=== PATIENT | female | born 1985 | race African-American/Black ===

== ENCOUNTER 2021-08-28 16:24 | Inpatient (IN) ==
[~2021-08-28 16:24] MED LIST: FLUTICASONE 50 MCG NASAL SPRAY 16 GM BOTTLE BOTH NARES PRN
[2021-08-28] MEDS ORDERED: SODIUM CHLORIDE 0.9% 1,000 ML IV STA (17:23)
[2021-08-28 17:41] LABS: Basophils # 0.1 10*3/uL (0.0-0.2); Basophils % 0.5 % (0.0-0.8); Eosinophils % 0.4 % (0.00-10.9); Hematocrit 27.1 VOL% (35.7-47.0); Hemoglobin 8.6 GM/DL (12.0-16.0); Immature Granulocytes % 0.7 %; Immature Granulocytes Absolute 0.07 #; Lymphocytes # 1.4 10*3/uL (1.4-4.0); Mean Corpuscular HGB Conc 31.7 GM/DL (32-36); Mean Corpuscular Volume 76.6 FL (87-102); Mean Platelet Volume 9.3 FL (9.6-12.0); Monocytes # 0.7 10*3/uL (0.11-0.8); Monocytes % 6.9 % (1.7-12.7); Neutrophils % 77.5 % (38.7-73.9); Platelet Count 885 T/CUMM (130-400); Red Blood Count 3.54 MC/CUMM (3.8-5.5); White Blood Count 9.7 T/CUMM (4-12)
[2021-08-28 18:07] LABS: INR 1.1; PT Patient Result 12.2 SECS (10.5-12.0)
[2021-08-28 18:12] LABS: Alanine Aminotransferase < 9 U/L (13-56); Albumin 3.1 G/DL (3.4-5.0); Alkaline Phosphatase 103 U/L (45-117); Aspartate Amino Transferase 13 U/L (0-37); Blood Urea Nitrogen 6 MG/DL (7-18); Calcium 9.3 MG/DL (8.5-10.1); Carbon Dioxide 26 MMOL/L (21-32); Chloride 101 MMOL/L (98-107); Glucose 95 MG/DL (74-106); Potassium 3.2 MMOL/L (3.5-5.1); Sodium 136 MMOL/L (136-145); Total Protein 7.8 G/DL (6.4-8.2)
[2021-08-28] MEDS ORDERED: METOPROLOL TARTRATE 5 MG/5 ML VIAL IV STA (18:28)
[2021-08-28] MEDS ORDERED: POTASSIUM CHLORIDE 20 MEQ TABLET PO STA (18:29)
[2021-08-28 19:56] LABS: Bilirubin,Urine Small mg/dL (Negative); Blood, Urine Negative (Negative); Glucose,Urine (UA) Negative (Negative); Ketones,Urine Trace mg/dL (Negative); Nitrite,Urine Negative (Negative); Protein,Urine 30 mg/dL (Negative); Urine Appearance Clear (Clear); Urine Color Yellow (Yellow); Urine pH 5.5 (4.5-8.0)
[2021-08-28 20:01] LABS: Barbiturates Screen,Urine Negative (Negative); Benzodiazepines Screen,Urine Negative (Negative); Cannabinoid Screen,Urine Negative (Negative); Opiate Screen,Urine Negative (Negative); Phencyclidine Screen,Urine Negative (Negative)
[2021-08-28 20:06] LABS: Hyaline Casts,Urine 3 /LPF (0-3); Mucus,Urine Occasional /LPF (Occasional); RBC,Urine 2 /HPF (0-4); Squamous Epithelial Cell,Urine Occasional /HPF (0-10)
[2021-08-28] MEDS ORDERED: GLUCAGON 1 MG VIAL IM PRN (22:46)
[2021-08-28] MEDS ORDERED: SIMETHICONE CHEW 125 MG TABLET PO PRN (22:51)
[2021-08-28] MEDS ORDERED: ONDANSETRON 4 MG/2 ML VIAL IV PRN (22:51)
[2021-08-28] MEDS ORDERED: BENZONATATE 100 MG CAPSULE PO PRN (23:10)
[2021-08-28] MEDS ORDERED: DEXTROSE 10% 250 ML BAG IV PRN (23:13)
[2021-08-29] MEDS: SODIUM CHLORIDE 0.9% 1,000 ML IV SCH ×2 (02:29→11:02)
[2021-08-29] MEDS: ENOXAPARIN 40 MG/0.4 ML SYRINGE SUBCUT SCH ×2 (04:56→21:27)
[2021-08-29] MEDS ORDERED: POTASSIUM CHLORIDE 20 MEQ TABLET PO PRN (05:27)
[2021-08-29 05:37] LABS: Basophils % 0.5 % (0.0-0.8); Eosinophils % 0.2 % (0.00-10.9); Hematocrit 22.3 VOL% (35.7-47.0); Hemoglobin 7.2 GM/DL (12.0-16.0); Immature Granulocytes % 0.8 %; Immature Granulocytes Absolute 0.07 #; Lymphocytes # 1.2 10*3/uL (1.4-4.0); Lymphocytes % 13.1 % (21.3-54.2); Mean Corpuscular HGB Conc 32.3 GM/DL (32-36); Mean Corpuscular Volume 75.6 FL (87-102); Mean Platelet Volume 9.2 FL (9.6-12.0); Monocytes # 0.8 10*3/uL (0.11-0.8); Monocytes % 9.1 % (1.7-12.7); Neutrophils % 76.3 % (38.7-73.9); Platelet Count 739 T/CUMM (130-400); Red Blood Count 2.95 MC/CUMM (3.8-5.5); Red Cell Distribution Width 15.1 % (9.3-17.3); White Blood Count 8.8 T/CUMM (4-12)
[2021-08-29 06:03] LABS: Calcium 8.6 MG/DL (8.5-10.1); Osmolality,Calculated 268.8 MOS/KG (273-304); Potassium 3.1 MMOL/L (3.5-5.1); Risk Ratio 3.44; VLDL Cholesterol 23.4 MG/DL
[2021-08-29] MEDS ORDERED: POTASSIUM CHLORIDE 20 MEQ TABLET PO ONE ×2 (07:25→11:00)
[2021-08-29] MEDS: PANTOPRAZOLE 40 MG TABLET PO SCH (09:45)
[2021-08-29] MEDS: PRAMIPEXOLE 0.25 MG TABLET PO SCH (09:45)
[2021-08-29] MEDS: DOCUSATE SODIUM 100 MG CAPSULE PO SCH ×2 (09:45→21:28)
[2021-08-29 16:51] LABS: Neutrophils,Peritoneal Fluid 80 %; RBC,Peritoneal Fluid > 100000 T/CUMM
[2021-08-29] MEDS: FENOFIBRATE 160 MG TABLET PO SCH (21:27)
[2021-08-29] MEDS: GABAPENTIN 300 MG CAPSULE PO SCH (21:28)
[2021-08-29] MEDS: TOPIRAMATE 25 MG TABLET PO SCH (21:28)
[2021-08-29] MEDS: traZODone 50 MG TABLET PO SCH (21:28)
[2021-08-30] MEDS: ACETAMINOPHEN 325 MG TABLET PO PRN ×2 (00:07→11:21)
[2021-08-30] MEDS: ENOXAPARIN 40 MG/0.4 ML SYRINGE SUBCUT SCH ×2 (01:01→23:07)
[2021-08-30 04:48] LABS: Basophils % 0.3 % (0.0-0.8); Eosinophils % 0.1 % (0.00-10.9); Hematocrit 20.5 VOL% (35.7-47.0); Immature Granulocytes % 0.8 %; Immature Granulocytes Absolute 0.08 #; Mean Corpuscular HGB Conc 31.2 GM/DL (32-36); Mean Corpuscular Volume 76.5 FL (87-102); Mean Platelet Volume 8.9 FL (9.6-12.0); Monocytes # 0.9 10*3/uL (0.11-0.8); Monocytes % 9.1 % (1.7-12.7); Neutrophils % 79.7 % (38.7-73.9); Platelet Count 708 T/CUMM (130-400); Red Blood Count 2.68 MC/CUMM (3.8-5.5); Red Cell Distribution Width 15.4 % (9.3-17.3); White Blood Count 9.9 T/CUMM (4-12)
[2021-08-30 04:51] LABS: Hemoglobin 6.4 GM/DL (12.0-16.0)
[2021-08-30 05:10] LABS: Alanine Aminotransferase < 9 U/L (13-56); Albumin 2.3 G/DL (3.4-5.0); Alkaline Phosphatase 79 U/L (45-117); Aspartate Amino Transferase 10 U/L (0-37); Blood Urea Nitrogen 3 MG/DL (7-18); Calcium 8.7 MG/DL (8.5-10.1); Carbon Dioxide 25 MMOL/L (21-32); Chloride 106 MMOL/L (98-107); Glucose 101 MG/DL (74-106); Osmolality,Calculated 271.7 MOS/KG (273-304); Potassium 3.5 MMOL/L (3.5-5.1); Sodium 138 MMOL/L (136-145); Total Protein 6.8 G/DL (6.4-8.2)
[2021-08-30] MEDS ORDERED: SODIUM CHLORIDE 0.9% 1,000 ML IV PRN (07:32)
[2021-08-30 07:54] LABS: % Iron Saturation 7.7 % (18-50); Ferritin 60.3 ng/mL (8-252)
[2021-08-30] MEDS: DOCUSATE SODIUM 100 MG CAPSULE PO SCH ×2 (09:04→20:32)
[2021-08-30] MEDS: PANTOPRAZOLE 40 MG TABLET PO SCH (09:04)
[2021-08-30] MEDS: PRAMIPEXOLE 0.25 MG TABLET PO SCH (09:04)
[2021-08-30] MEDS: METOPROLOL TARTRATE 25 MG TABLET PO SCH ×2 (09:11→20:32)
[2021-08-30] MEDS: FENOFIBRATE 160 MG TABLET PO SCH (20:32)
[2021-08-30] MEDS: GABAPENTIN 300 MG CAPSULE PO SCH (20:32)
[2021-08-30] MEDS: traZODone 50 MG TABLET PO SCH (20:32)
[2021-08-30] MEDS: TOPIRAMATE 25 MG TABLET PO SCH (20:32)
[2021-08-31 05:54] LABS: Basophils # 0.1 10*3/uL (0.0-0.2); Basophils % 0.4 % (0.0-0.8); Eosinophils % 0.1 % (0.00-10.9); Hematocrit 28.6 VOL% (35.7-47.0); Hemoglobin 9.5 GM/DL (12.0-16.0); Immature Granulocytes % 1.9 %; Immature Granulocytes Absolute 0.31 #; Lymphocytes # 1.3 10*3/uL (1.4-4.0); Lymphocytes % 7.7 % (21.3-54.2); Mean Corpuscular HGB Conc 33.2 GM/DL (32-36); Mean Corpuscular Volume 79.2 FL (87-102); Mean Platelet Volume 9.4 FL (9.6-12.0); Monocytes # 1.3 10*3/uL (0.11-0.8); Monocytes % 8.2 % (1.7-12.7); NRBC # 0.02 10*3/uL; Neutrophils % 81.7 % (38.7-73.9); Platelet Count 759 T/CUMM (130-400); Red Blood Count 3.61 MC/CUMM (3.8-5.5); Red Cell Distribution Width 15.8 % (9.3-17.3); White Blood Count 16.1 T/CUMM (4-12)
[2021-08-31 06:08] LABS: Alanine Aminotransferase < 9 U/L (13-56); Albumin 2.1 G/DL (3.4-5.0); Alkaline Phosphatase 81 U/L (45-117); Aspartate Amino Transferase 11 U/L (0-37); Blood Urea Nitrogen 5 MG/DL (7-18); Calcium 8.8 MG/DL (8.5-10.1); Carbon Dioxide 23 MMOL/L (21-32); Chloride 105 MMOL/L (98-107); Glucose 110 MG/DL (74-106); Osmolality,Calculated 270.8 MOS/KG (273-304); Potassium 3.5 MMOL/L (3.5-5.1); Sodium 137 MMOL/L (136-145); Total Protein 6.8 G/DL (6.4-8.2)
[2021-08-31] MEDS: METOPROLOL TARTRATE 25 MG TABLET PO SCH (08:23)
[2021-08-31] MEDS: DOCUSATE SODIUM 100 MG CAPSULE PO SCH (08:23)
[2021-08-31] MEDS: PANTOPRAZOLE 40 MG TABLET PO SCH (08:23)
[2021-08-31] MEDS: PRAMIPEXOLE 0.25 MG TABLET PO SCH (08:23)
[2021-08-31 16:28] VITALS: BP 109/68
[2021-09-01] MEDS ORDERED: ERGOCALCIFEROL 50,000 UNIT CAPSULE PO SCH (09:00)
== END 2021-08-31 18:00 | disposition hospice, home (50) | DRG 755 ==
LOC: N.ED 16:24 → N.TELES 22:46
PROVIDERS: ADMIT Family Medicine; ATTEND Family Medicine

== ENCOUNTER 2022-02-08 08:01 | Inpatient (IN) ==
[2022-02-08] MEDS ORDERED: SODIUM CHLORIDE 0.9% 1,000 ML IV STA (08:20)
[2022-02-08 08:37] LABS: Basophils # 0.1 10*3/uL (0.0-0.2); Basophils % 0.2 % (0.0-0.8); Hemoglobin 8.2 GM/DL (12.0-16.0); Immature Granulocytes % 6.9 %; Immature Granulocytes Absolute 2.75 #; Lymphocytes # 1.1 10*3/uL (1.4-4.0); Lymphocytes % 2.9 % (21.3-54.2); Mean Corpuscular HGB Conc 34.2 GM/DL (32-36); Mean Corpuscular Volume 80.8 FL (87-102); Mean Platelet Volume 8.6 FL (9.6-12.0); Monocytes # 1.3 10*3/uL (0.11-0.8); Monocytes % 3.3 % (1.7-12.7); NRBC # 0.02 10*3/uL; Neutrophils % 86.7 % (38.7-73.9); Platelet Count 229 T/CUMM (130-400); Red Blood Count 2.97 MC/CUMM (3.8-5.5); Red Cell Distribution Width 15.8 % (9.3-17.3)
[2022-02-08 08:56] LABS: Band Neutrophils 4 % (0-10); Hypochromia Slight; Lymphocytes 4 % (20-55); Microcytosis Slight; Platelet Estimate Adequate; Total Cells Counted 100
[2022-02-08 08:57] LABS: Albumin 3.3 G/DL (3.4-5.0); Bilirubin,Total 1.3 MG/DL (0.20-1.00); Calcium 10.2 MG/DL (8.5-10.1); Misc Morphology F; Osmolality,Calculated 263.4 MOS/KG (273-304); Potassium 3.3 MMOL/L (3.5-5.1); Total Protein 7.7 G/DL (6.4-8.2)
[2022-02-08] MEDS ORDERED: PIPERACILLIN/TAZOBACTAM 3,375 MG in SODIUM CHLORIDE 0.9% 100 ML IV STA (09:30)
[2022-02-08 09:58] LABS: Bacteria,Urine Occasional /HPF (Few); Glucose,Urine (UA) Negative (Negative); Hyaline Casts,Urine 3 /LPF (0-3); Mucus,Urine Occasional /LPF (Occasional); Protein,Urine Trace mg/dL (Negative); RBC,Urine <1 /HPF (0-4); Squamous Epithelial Cell,Urine Occasional /HPF (0-10); Urine Appearance Clear (Clear); Urine Color Yellow (Yellow); Urine Specific Gravity 1.015 (1.001-1.035)
[2022-02-08 09:59] LABS: Bilirubin,Urine Small mg/dL (Negative); Blood, Urine Negative (Negative); Ketones,Urine 15 mg/dL (Negative); Nitrite,Urine Negative (Negative); Urine Urobilinogen 0.2 eU/dL (<2.0)
[2022-02-08] MEDS ORDERED: FLUTICASONE 50 MCG NASAL SPRAY 16 GM BOTTLE BOTH NARES PRN (10:54)
[2022-02-08] MEDS ORDERED: LIDOCAINE 5% PATCH TRANSDERM PRN (10:54)
[2022-02-08] MEDS ORDERED: METOPROLOL TARTRATE 5 MG/5 ML VIAL IV PRN (10:58)
[2022-02-08] MEDS ORDERED: POTASSIUM CHLORIDE RIDER 20 MEQ/100 ML PREMIX IV PRN (11:01)
[2022-02-08] MEDS: SODIUM CHLORIDE 0.45% 1,000 ML IV SCH ×2 (12:00→22:25)
[2022-02-08] MEDS ORDERED: METOPROLOL TARTRATE 5 MG/5 ML VIAL IV SCH (12:00)
[2022-02-08] MEDS: ONDANSETRON 4 MG/2 ML VIAL IV PRN ×2 (12:04→16:21)
[2022-02-08] MEDS: MORPHINE 2 MG/1 ML SYRINGE IV PRN ×2 (13:02→17:05)
[2022-02-08] MEDS: MEGESTROL 400 MG/10 ML UDCUP PO SCH (22:24)
[2022-02-08] MEDS: PROMETHAZINE 25 MG/1 ML VIAL IM PRN (22:50)
[2022-02-09] MEDS: MORPHINE 2 MG/1 ML SYRINGE IV PRN ×4 (04:09→20:48)
[2022-02-09] MEDS: POTASSIUM CHLORIDE RIDER 10 MEQ/100 ML PREMIX IV PRN ×2 (04:27→05:54)
[2022-02-09 05:42] LABS: Albumin 2.9 G/DL (3.4-5.0); Bilirubin,Total 1.1 MG/DL (0.20-1.00); Osmolality,Calculated 261.4 MOS/KG (273-304); Potassium 3.2 MMOL/L (3.5-5.1); Total Protein 6.4 G/DL (6.4-8.2)
[2022-02-09 05:49] LABS: Basophils # 0.1 10*3/uL (0.0-0.2); Basophils % 0.2 % (0.0-0.8); Eosinophils % 0.1 % (0.00-10.9); Immature Granulocytes % 14.9 %; Immature Granulocytes Absolute 5.64 #; Lymphocytes % 2.7 % (21.3-54.2); Mean Corpuscular HGB Conc 34.2 GM/DL (32-36); Mean Corpuscular Volume 82.3 FL (87-102); Mean Platelet Volume 8.8 FL (9.6-12.0); Monocytes # 1.2 10*3/uL (0.11-0.8); Monocytes % 3.1 % (1.7-12.7); Platelet Count 183 T/CUMM (130-400); Red Blood Count 2.31 MC/CUMM (3.8-5.5); Red Cell Distribution Width 15.9 % (9.3-17.3); White Blood Count 37.9 T/CUMM (4-12)
[2022-02-09 05:50] LABS: Hemoglobin 6.5 GM/DL (12.0-16.0)
[2022-02-09] MEDS: PROMETHAZINE 25 MG/1 ML VIAL IM PRN ×2 (06:23→20:55)
[2022-02-09 06:30] LABS: Hypochromia 1+; Lymphocytes 4 % (20-55); Microcytosis 1+; Platelet Estimate Adequate; Total Cells Counted 100
[2022-02-09 06:50] LABS: Hematocrit 21.5 VOL% (35.7-47.0); Hemoglobin 7.2 GM/DL (12.0-16.0)
[2022-02-09] MEDS ORDERED: SODIUM CHLORIDE 0.9% 1,000 ML IV PRN ×2 (08:26→12:39)
[2022-02-09] MEDS: ONDANSETRON 4 MG/2 ML VIAL IV PRN (10:09)
[2022-02-09] MEDS: PANTOPRAZOLE 40 MG VIAL IV SCH (10:10)
[2022-02-09] MEDS: MEGESTROL 400 MG/10 ML UDCUP PO SCH ×2 (10:11→22:22)
[2022-02-09] MEDS: SODIUM CHLORIDE 0.45% 1,000 ML IV SCH ×2 (10:33→17:15)
[2022-02-09] MEDS: DEXAMETHASONE INJ 10 MG in SODIUM CHLORIDE 0.9% 50 ML IV SCH (14:38)
[2022-02-09] MEDS: hydrALAZINE 20 MG/1 ML VIAL IV PRN (15:31)
[2022-02-09 18:38] LABS: Hematocrit 31.4 VOL% (35.7-47.0)
[2022-02-09 18:40] LABS: Hemoglobin 11.1 GM/DL (12.0-16.0)
[2022-02-10] MEDS: hydrALAZINE 20 MG/1 ML VIAL IV PRN (00:23)
[2022-02-10] MEDS: MORPHINE 2 MG/1 ML SYRINGE IV PRN ×4 (00:25→21:18)
[2022-02-10] MEDS: ONDANSETRON 4 MG/2 ML VIAL IV PRN ×2 (02:50→08:09)
[2022-02-10] MEDS: SODIUM CHLORIDE 0.45% 1,000 ML IV SCH ×2 (03:37→19:23)
[2022-02-10 06:46] LABS: Basophils # 0.1 10*3/uL (0.0-0.2); Basophils % 0.4 % (0.0-0.8); Hematocrit 31.2 VOL% (35.7-47.0); Immature Granulocytes Absolute 3.58 #; Lymphocytes # 0.6 10*3/uL (1.4-4.0); Lymphocytes % 1.6 % (21.3-54.2); Mean Corpuscular HGB Conc 35.3 GM/DL (32-36); Mean Corpuscular Volume 82.3 FL (87-102); Mean Platelet Volume 9.2 FL (9.6-12.0); Monocytes # 1.1 10*3/uL (0.11-0.8); Monocytes % 3.1 % (1.7-12.7); Neutrophils % 84.9 % (38.7-73.9); Platelet Count 212 T/CUMM (130-400); Red Blood Count 3.79 MC/CUMM (3.8-5.5); Red Cell Distribution Width 15.2 % (9.3-17.3); White Blood Count 35.7 T/CUMM (4-12)
[2022-02-10 07:07] LABS: Albumin 3.1 G/DL (3.4-5.0); Bilirubin,Total 1.4 MG/DL (0.20-1.00); Calcium 9.4 MG/DL (8.5-10.1); Osmolality,Calculated 249.4 MOS/KG (273-304); Potassium 3.5 MMOL/L (3.5-5.1); Total Protein 7.2 G/DL (6.4-8.2)
[2022-02-10 07:13] LABS: Band Neutrophils 2 % (0-10); Lymphocytes 3 % (20-55); Total Cells Counted 100
[2022-02-10 07:14] LABS: Hypochromia Slight; Microcytosis 1+; Ovalocytes Slight
[2022-02-10 07:15] LABS: Platelet Estimate Normal
[2022-02-10] MEDS: PANTOPRAZOLE 40 MG VIAL IV SCH (08:09)
[2022-02-10] MEDS: DEXAMETHASONE INJ 10 MG in SODIUM CHLORIDE 0.9% 50 ML IV SCH (08:15)
[2022-02-10] MEDS: MEGESTROL 400 MG/10 ML UDCUP PO SCH (10:19)
[2022-02-10] MEDS: GABAPENTIN 300 MG CAPSULE PO SCH ×4 (13:04→21:24)
[2022-02-10] MEDS: PIPERACILLIN/TAZOBACTAM 3,375 MG in SODIUM CHLORIDE 0.9% 100 ML IV SCH ×2 (15:49→21:30)
[2022-02-11] MEDS: SODIUM CHLORIDE 0.45% 1,000 ML IV SCH ×3 (00:30→23:20)
[2022-02-11] MEDS: MORPHINE 2 MG/1 ML SYRINGE IV PRN ×2 (03:32→07:39)
[2022-02-11] MEDS: PIPERACILLIN/TAZOBACTAM 3,375 MG in SODIUM CHLORIDE 0.9% 100 ML IV SCH ×2 (06:10→16:46)
[2022-02-11 07:32] LABS: Basophils # 0.1 10*3/uL (0.0-0.2); Basophils % 0.5 % (0.0-0.8); Eosinophils # 0.2 10*3/uL (0.0-0.87); Eosinophils % 0.7 % (0.00-10.9); Hematocrit 29.3 VOL% (35.7-47.0); Hemoglobin 10.1 GM/DL (12.0-16.0); Immature Granulocytes % 4.2 %; Immature Granulocytes Absolute 0.86 #; Lymphocytes # 0.5 10*3/uL (1.4-4.0); Lymphocytes % 2.3 % (21.3-54.2); Mean Corpuscular HGB Conc 34.5 GM/DL (32-36); Mean Platelet Volume 8.8 FL (9.6-12.0); Monocytes # 1.3 10*3/uL (0.11-0.8); NRBC # 0.02 10*3/uL; Neutrophils % 86.3 % (38.7-73.9); Platelet Count 191 T/CUMM (130-400); Red Blood Count 3.49 MC/CUMM (3.8-5.5); Red Cell Distribution Width 15.4 % (9.3-17.3); White Blood Count 20.7 T/CUMM (4-12)
[2022-02-11] MEDS: hydrALAZINE 20 MG/1 ML VIAL IV PRN (07:38)
[2022-02-11 07:59] LABS: Osmolality,Calculated 255.1 MOS/KG (273-304); Potassium 3.4 MMOL/L (3.5-5.1)
[2022-02-11] MEDS: GABAPENTIN 300 MG CAPSULE PO SCH ×2 (08:19→21:52)
[2022-02-11 08:25] LABS: Band Neutrophils 3 % (0-10); Lymphocytes 1 % (20-55); Total Cells Counted 100
[2022-02-11 08:26] LABS: Anisocytosis 1+; Hypochromia Slight; Microcytosis 1+; Ovalocytes Slight; Platelet Estimate Adequate
[2022-02-11] MEDS ORDERED: MAGNESIUM SULF RIDER 2 GM/50 ML PREMIX IV ONE (10:23)
[2022-02-11] MEDS ORDERED: LORazepam 2 MG/1 ML VIAL IV PRN (10:34)
[2022-02-11] MEDS: PANTOPRAZOLE 40 MG VIAL IV SCH (10:47)
[2022-02-11] MEDS: POTASSIUM CHLORIDE 20 MEQ TABLET PO ONE ×2 (13:08→14:01)
[2022-02-11] MEDS ORDERED: POTASSIUM CHLORIDE RIDER 20 MEQ/100 ML PREMIX IV ONE (14:00)
[2022-02-11] MEDS: POTASSIUM CHLORIDE RIDER 10 MEQ/100 ML PREMIX IV PRN (16:46)
[2022-02-11] MEDS: fentaNYL 25 MCG/HR PATCH TRANSDERM SCH (17:25)
[2022-02-11] MEDS: DEXT 5% NACL 0.9% KCL 20 MEQ 20 MEQ/1,000 ML BAG IV SCH (22:46)
[2022-02-12] MEDS: PIPERACILLIN/TAZOBACTAM 3,375 MG in SODIUM CHLORIDE 0.9% 100 ML IV SCH ×4 (01:43→23:30)
[2022-02-12 04:51] LABS: Basophils # 0.1 10*3/uL (0.0-0.2); Basophils % 0.6 % (0.0-0.8); Hematocrit 26.5 VOL% (35.7-47.0); Hemoglobin 9.2 GM/DL (12.0-16.0); Lymphocytes # 0.6 10*3/uL (1.4-4.0); Lymphocytes % 5.7 % (21.3-54.2); Mean Corpuscular HGB Conc 34.7 GM/DL (32-36); Mean Corpuscular Volume 83.9 FL (87-102); Mean Platelet Volume 8.9 FL (9.6-12.0); Monocytes # 0.6 10*3/uL (0.11-0.8); Monocytes % 5.7 % (1.7-12.7); Platelet Count 162 T/CUMM (130-400); Red Blood Count 3.16 MC/CUMM (3.8-5.5); Red Cell Distribution Width 15.5 % (9.3-17.3); White Blood Count 9.7 T/CUMM (4-12)
[2022-02-12 05:08] LABS: Calcium 8.7 MG/DL (8.5-10.1); Osmolality,Calculated 255.9 MOS/KG (273-304); Potassium 3.3 MMOL/L (3.5-5.1)
[2022-02-12 05:12] LABS: Alanine Aminotransferase < 9 U/L (13-56); Albumin 2.9 G/DL (3.4-5.0); Alkaline Phosphatase 114 U/L (45-117); Aspartate Amino Transferase 10 U/L (0-37); Blood Urea Nitrogen 8 MG/DL (7-18); Carbon Dioxide 21 MMOL/L (21-32); Chloride 97 MMOL/L (98-107); Glucose 97 MG/DL (74-106); Osmolality,Calculated 259.7 MOS/KG (273-304); Potassium 3.2 MMOL/L (3.5-5.1); Sodium 131 MMOL/L (136-145); Total Protein 6.6 G/DL (6.4-8.2)
[2022-02-12 05:17] LABS: Band Neutrophils 4 % (0-10); Lymphocytes 9 % (20-55); Total Cells Counted 100
[2022-02-12 05:18] LABS: Hypochromia Slight; Microcytosis 1+; Platelet Estimate Adequate
[2022-02-12] MEDS: SODIUM CHLORIDE 0.45% 1,000 ML IV SCH ×4 (06:58→23:30)
[2022-02-12] MEDS: GABAPENTIN 300 MG CAPSULE PO SCH ×2 (09:19→20:25)
[2022-02-12] MEDS: PANTOPRAZOLE 40 MG VIAL IV SCH (09:28)
[2022-02-12] MEDS: DEXT 5% NACL 0.9% KCL 20 MEQ 20 MEQ/1,000 ML BAG IV SCH ×3 (10:54→18:12)
[2022-02-12 12:32] LABS: PT Patient Result 11.2 SECS (10.1-12.1)
[2022-02-12] MEDS ORDERED: propofoL 200 MG/20 ML VIAL IV ONE (12:48)
[2022-02-12] MEDS ORDERED: ESMOLOL 100 MG/10 ML VIAL IV ONE (12:48)
[2022-02-12] MEDS ORDERED: LIDOCAINE 2% 5 ML VIAL ONE (12:48)
[2022-02-12] MEDS ORDERED: DIAZEPAM 5 MG TABLET PO ONE (13:14)
[2022-02-12 13:55] LABS: Antinuclear Ab, S 0.8 U
[2022-02-12] MEDS: LACTATED RINGERS 1,000 ML IV SCH ×2 (14:26→17:11)
[2022-02-12] MEDS: MIDAZOLAM 2 MG/2 ML VIAL IV ONE ×2 (15:59→17:09)
[2022-02-12] MEDS: fentaNYL 100 MCG/2 ML VIAL IV ONE ×2 (16:01→17:09)
[2022-02-12] MEDS: MORPHINE 2 MG/1 ML SYRINGE IV PRN (17:43)
[2022-02-12] MEDS: METOCLOPRAMIDE 10 MG/2 ML VIAL IV SCH ×2 (18:12→23:30)
[2022-02-13] MEDS: SODIUM CHLORIDE 0.45% 1,000 ML IV SCH ×2 (02:05→11:00)
[2022-02-13] MEDS: MORPHINE 2 MG/1 ML SYRINGE IV PRN ×3 (05:15→20:39)
[2022-02-13] MEDS: METOCLOPRAMIDE 10 MG/2 ML VIAL IV SCH ×4 (05:15→23:47)
[2022-02-13 06:28] LABS: Basophils # 0.1 10*3/uL (0.0-0.2); Basophils % 0.7 % (0.0-0.8); Eosinophils % 0.1 % (0.00-10.9); Hematocrit 26.6 VOL% (35.7-47.0); Hemoglobin 9.1 GM/DL (12.0-16.0); Immature Granulocytes % 1.6 %; Immature Granulocytes Absolute 0.15 #; Lymphocytes # 0.5 10*3/uL (1.4-4.0); Mean Corpuscular HGB Conc 34.2 GM/DL (32-36); Mean Corpuscular Volume 85.8 FL (87-102); Mean Platelet Volume 9.3 FL (9.6-12.0); Monocytes # 0.3 10*3/uL (0.11-0.8); Monocytes % 2.9 % (1.7-12.7); Neutrophils % 89.7 % (38.7-73.9); Platelet Count 131 T/CUMM (130-400); Red Cell Distribution Width 15.5 % (9.3-17.3); White Blood Count 9.2 T/CUMM (4-12)
[2022-02-13 06:39] LABS: Calcium 8.9 MG/DL (8.5-10.1); Osmolality,Calculated 263.4 MOS/KG (273-304); Potassium 3.2 MMOL/L (3.5-5.1)
[2022-02-13 06:50] LABS: Band Neutrophils 2 % (0-10); Eosinophils 3 % (0-10); Hypochromia Slight; Lymphocytes 5 % (20-55); Microcytosis 1+; Ovalocytes Slight; Total Cells Counted 100
[2022-02-13 06:51] LABS: Platelet Estimate Adequate
[2022-02-13] MEDS: PIPERACILLIN/TAZOBACTAM 3,375 MG in SODIUM CHLORIDE 0.9% 100 ML IV SCH ×3 (08:31→23:47)
[2022-02-13] MEDS: GABAPENTIN 300 MG CAPSULE PO SCH ×2 (08:33→23:32)
[2022-02-13] MEDS: PANTOPRAZOLE 40 MG VIAL IV SCH (08:33)
[2022-02-13] MEDS ORDERED: POTASSIUM CHLORIDE 20 MEQ TABLET PO ONE (10:51)
[2022-02-13] MEDS ORDERED: MAGNESIUM SULF RIDER 2 GM/50 ML PREMIX IV ONE (10:51)
[2022-02-13] MEDS: POTASSIUM CHLORIDE RIDER 20 MEQ/100 ML PREMIX IV SCH ×2 (14:08→16:24)
[2022-02-13] MEDS: LACTATED RINGERS 1,000 ML IV SCH ×2 (15:21)
[2022-02-14] MEDS: SODIUM CHLORIDE 0.45% 1,000 ML IV SCH ×4 (01:04→19:07)
[2022-02-14] MEDS: METOCLOPRAMIDE 10 MG/2 ML VIAL IV SCH (05:57)
[2022-02-14 06:38] LABS: Alanine Aminotransferase < 9 U/L (13-56); Albumin 2.6 G/DL (3.4-5.0); Alkaline Phosphatase 98 U/L (45-117); Aspartate Amino Transferase 11 U/L (0-37); Blood Urea Nitrogen 5 MG/DL (7-18); Calcium 8.7 MG/DL (8.5-10.1); Carbon Dioxide 23 MMOL/L (21-32); Chloride 99 MMOL/L (98-107); Glucose 81 MG/DL (74-106); Osmolality,Calculated 257.7 MOS/KG (273-304); Potassium 3.5 MMOL/L (3.5-5.1); Sodium 131 MMOL/L (136-145); Total Protein 6.4 G/DL (6.4-8.2)
[2022-02-14] MEDS: METOCLOPRAMIDE 10 MG/10 ML UDCUP PO SCH ×4 (08:30→21:46)
[2022-02-14] MEDS: fentaNYL 25 MCG/HR PATCH TRANSDERM SCH (08:31)
[2022-02-14] MEDS: GABAPENTIN 300 MG CAPSULE PO SCH ×2 (08:31→21:29)
[2022-02-14] MEDS: PANTOPRAZOLE 40 MG TABLET PO SCH ×2 (08:31→21:29)
[2022-02-14] MEDS: PIPERACILLIN/TAZOBACTAM 3,375 MG in SODIUM CHLORIDE 0.9% 100 ML IV SCH ×3 (08:31→23:57)
[2022-02-14] MEDS: MAGNESIUM CHLORIDE 64 MG TABLET PO SCH ×2 (11:48→21:29)
[2022-02-14] MEDS: MORPHINE 2 MG/1 ML SYRINGE IV PRN (18:34)
[2022-02-14] MEDS: DICLOFENAC 1% GEL 100 GM TUBE TOP SCH (21:46)
[2022-02-15] MEDS: SODIUM CHLORIDE 0.45% 1,000 ML IV SCH ×2 (03:47→13:25)
[2022-02-15 05:48] LABS: Basophils % 0.5 % (0.0-0.8); Eosinophils # 0.1 10*3/uL (0.0-0.87); Eosinophils % 0.6 % (0.00-10.9); Hematocrit 23.5 VOL% (35.7-47.0); Hemoglobin 7.9 GM/DL (12.0-16.0); Immature Granulocytes % 2.4 %; Immature Granulocytes Absolute 0.19 #; Lymphocytes # 0.6 10*3/uL (1.4-4.0); Lymphocytes % 7.8 % (21.3-54.2); Mean Corpuscular HGB Conc 33.6 GM/DL (32-36); Mean Platelet Volume 9.1 FL (9.6-12.0); Monocytes # 0.2 10*3/uL (0.11-0.8); Neutrophils % 85.7 % (38.7-73.9); Platelet Count 75 T/CUMM (130-400); Red Cell Distribution Width 15.1 % (9.3-17.3); White Blood Count 7.9 T/CUMM (4-12)
[2022-02-15 05:59] LABS: Calcium 9.1 MG/DL (8.5-10.1); Osmolality,Calculated 259.5 MOS/KG (273-304); Potassium 3.2 MMOL/L (3.5-5.1)
[2022-02-15 06:21] LABS: Anisocytosis 1+; Band Neutrophils 13 % (0-10); Lymphocytes 9 % (20-55); Platelet Estimate Decreased; Total Cells Counted 100
[2022-02-15] MEDS: MAGNESIUM CHLORIDE 64 MG TABLET PO SCH ×2 (09:22→21:51)
[2022-02-15] MEDS: METOCLOPRAMIDE 10 MG/10 ML UDCUP PO SCH ×4 (09:22→21:51)
[2022-02-15] MEDS: PIPERACILLIN/TAZOBACTAM 3,375 MG in SODIUM CHLORIDE 0.9% 100 ML IV SCH ×2 (09:23→17:56)
[2022-02-15] MEDS: PANTOPRAZOLE 40 MG TABLET PO SCH ×2 (09:23→21:51)
[2022-02-15] MEDS: GABAPENTIN 300 MG CAPSULE PO SCH ×3 (09:23→21:51)
[2022-02-15] MEDS: DICLOFENAC 1% GEL 100 GM TUBE TOP SCH ×3 (09:24→21:52)
[2022-02-15] MEDS ORDERED: POLYETHYLENE GLYCOL POWDER 17 GM PACK PO PRN (10:03)
[2022-02-15] MEDS ORDERED: DOCUSATE SODIUM 100 MG CAPSULE PO PRN (10:03)
[2022-02-15] MEDS: POTASSIUM CHLORIDE RIDER 10 MEQ/100 ML PREMIX IV PRN ×2 (13:20→15:56)
[2022-02-15] MEDS: MORPHINE 2 MG/1 ML SYRINGE IV PRN (18:31)
[2022-02-15] MEDS: MIRTAZAPINE 15 MG TABLET PO SCH (21:51)
[2022-02-16] MEDS: PIPERACILLIN/TAZOBACTAM 3,375 MG in SODIUM CHLORIDE 0.9% 100 ML IV SCH ×3 (01:26→17:38)
[2022-02-16] MEDS: SODIUM CHLORIDE 0.45% 1,000 ML IV SCH ×4 (01:26→22:32)
[2022-02-16 05:32] LABS: Basophils % 0.6 % (0.0-0.8); Eosinophils # 0.1 10*3/uL (0.0-0.87); Eosinophils % 1.5 % (0.00-10.9); Hematocrit 22.2 VOL% (35.7-47.0); Hemoglobin 7.6 GM/DL (12.0-16.0); Immature Granulocytes % 1.9 %; Immature Granulocytes Absolute 0.09 #; Lymphocytes # 0.7 10*3/uL (1.4-4.0); Lymphocytes % 13.9 % (21.3-54.2); Mean Corpuscular HGB Conc 34.2 GM/DL (32-36); Mean Corpuscular Volume 85.1 FL (87-102); Mean Platelet Volume 9.5 FL (9.6-12.0); Monocytes # 0.3 10*3/uL (0.11-0.8); Monocytes % 5.5 % (1.7-12.7); Neutrophils % 76.6 % (38.7-73.9); Platelet Count 56 T/CUMM (130-400); Red Blood Count 2.61 MC/CUMM (3.8-5.5); Red Cell Distribution Width 14.8 % (9.3-17.3); White Blood Count 4.7 T/CUMM (4-12)
[2022-02-16 05:33] LABS: Calcium 8.8 MG/DL (8.5-10.1); Osmolality,Calculated 259.5 MOS/KG (273-304)
[2022-02-16] MEDS: POTASSIUM CHLORIDE RIDER 10 MEQ/100 ML PREMIX IV PRN ×6 (05:50→17:53)
[2022-02-16 06:02] LABS: Band Neutrophils 20 % (0-10); Eosinophils 2 % (0-10); Lymphocytes 16 % (20-55); Total Cells Counted 100
[2022-02-16 06:03] LABS: Anisocytosis 1+; Burr Cells Few; Platelet Estimate Decreased
[2022-02-16] MEDS: GABAPENTIN 300 MG CAPSULE PO SCH ×3 (09:45→21:27)
[2022-02-16] MEDS: PANTOPRAZOLE 40 MG TABLET PO SCH ×2 (09:45→21:27)
[2022-02-16] MEDS: METOCLOPRAMIDE 10 MG/10 ML UDCUP PO SCH ×4 (09:45→21:27)
[2022-02-16] MEDS: MAGNESIUM CHLORIDE 64 MG TABLET PO SCH ×2 (09:45→21:27)
[2022-02-16] MEDS: DICLOFENAC 1% GEL 100 GM TUBE TOP SCH ×3 (09:48→21:28)
[2022-02-16] MEDS: POTASSIUM CHLORIDE 20 MEQ TABLET PO SCH ×2 (09:54→21:27)
[2022-02-16] MEDS: MIRTAZAPINE 15 MG TABLET PO SCH (21:27)
[2022-02-17] MEDS: PIPERACILLIN/TAZOBACTAM 3,375 MG in SODIUM CHLORIDE 0.9% 100 ML IV SCH ×3 (01:39→18:55)
[2022-02-17] MEDS: SODIUM CHLORIDE 0.45% 1,000 ML IV SCH ×2 (05:00→15:52)
[2022-02-17 05:04] LABS: Basophils % 0.7 % (0.0-0.8); Eosinophils % 0.4 % (0.00-10.9); Hematocrit 22.3 VOL% (35.7-47.0); Hemoglobin 7.5 GM/DL (12.0-16.0); Immature Granulocytes % 3.4 %; Immature Granulocytes Absolute 0.09 #; Lymphocytes # 0.4 10*3/uL (1.4-4.0); Lymphocytes % 15.7 % (21.3-54.2); Mean Corpuscular HGB Conc 33.6 GM/DL (32-36); Mean Corpuscular Volume 85.4 FL (87-102); Mean Platelet Volume 10.7 FL (9.6-12.0); Monocytes # 0.2 10*3/uL (0.11-0.8); Monocytes % 7.8 % (1.7-12.7); Platelet Count 43 T/CUMM (130-400); Red Blood Count 2.61 MC/CUMM (3.8-5.5); Red Cell Distribution Width 14.6 % (9.3-17.3); White Blood Count 2.7 T/CUMM (4-12)
[2022-02-17 05:19] LABS: Osmolality,Calculated 258.7 MOS/KG (273-304); Potassium 3.7 MMOL/L (3.5-5.1)
[2022-02-17 05:39] LABS: Band Neutrophils 2 % (0-10); Eosinophils 1 % (0-10); Hypochromia Slight; Lymphocytes 13 % (20-55); Microcytosis Slight; Platelet Estimate Decreased; Total Cells Counted 100
[2022-02-17] MEDS ORDERED: SODIUM CHLORIDE 0.9% 1,000 ML IV PRN ×2 (06:36→08:42)
[2022-02-17] MEDS ORDERED: MAGNESIUM SULF INJ 3 GM in SODIUM CHLORIDE 0.9% 100 ML IV ONE (08:00)
[2022-02-17] MEDS ORDERED: MAGNESIUM CHLORIDE 64 MG TABLET PO SCH (09:00)
[2022-02-17] MEDS: GABAPENTIN 300 MG CAPSULE PO SCH ×3 (09:03→22:27)
[2022-02-17] MEDS: MAGNESIUM CHLORIDE 64 MG TABLET PO SCH ×2 (09:03→22:27)
[2022-02-17] MEDS: OMEPRAZOLE ODT 20 MG TABLET PO SCH ×2 (09:03→22:27)
[2022-02-17] MEDS: POTASSIUM CHLORIDE 20 MEQ TABLET PO SCH ×2 (09:04→22:27)
[2022-02-17] MEDS: fentaNYL 25 MCG/HR PATCH TRANSDERM SCH (09:04)
[2022-02-17] MEDS: METOCLOPRAMIDE 10 MG/10 ML UDCUP PO SCH ×4 (09:04→22:28)
[2022-02-17] MEDS: DICLOFENAC 1% GEL 100 GM TUBE TOP SCH ×3 (09:19→22:28)
[2022-02-17] MEDS ORDERED: FILGRASTIM-SNDZ 300 MCG/0.5 ML SYRINGE SUBCUT ONE (10:00)
[2022-02-17] MEDS: MIRTAZAPINE 15 MG TABLET PO SCH (22:27)
[2022-02-18 05:29] LABS: Basophils % 1.4 % (0.0-0.8); Eosinophils % 0.7 % (0.00-10.9); Hematocrit 32.1 VOL% (35.7-47.0); Hemoglobin 10.7 GM/DL (12.0-16.0); Immature Granulocytes % 8.1 %; Immature Granulocytes Absolute 0.23 #; Lymphocytes # 0.6 10*3/uL (1.4-4.0); Lymphocytes % 21.8 % (21.3-54.2); Mean Corpuscular HGB Conc 33.3 GM/DL (32-36); Mean Corpuscular Volume 85.1 FL (87-102); Mean Platelet Volume 9.2 FL (9.6-12.0); Monocytes # 0.2 10*3/uL (0.11-0.8); Monocytes % 6.3 % (1.7-12.7); Neutrophils % 61.7 % (38.7-73.9); Red Blood Count 3.77 MC/CUMM (3.8-5.5); Red Cell Distribution Width 15.2 % (9.3-17.3); White Blood Count 2.9 T/CUMM (4-12)
[2022-02-18 05:32] LABS: Platelet Count 30 T/CUMM (130-400)
[2022-02-18 05:51] LABS: Band Neutrophils 1 % (0-10); Lymphocytes 17 % (20-55); Total Cells Counted 100
[2022-02-18 05:52] LABS: Hypochromia Slight; Microcytosis Slight; Ovalocytes Slight; Platelet Estimate Decreased
[2022-02-18 05:57] LABS: Calcium 9.1 MG/DL (8.5-10.1); Osmolality,Calculated 262.4 MOS/KG (273-304); Potassium 3.4 MMOL/L (3.5-5.1)
[2022-02-18] MEDS: SODIUM CHLORIDE 0.45% 1,000 ML IV SCH ×3 (07:00→14:13)
[2022-02-18] MEDS: GABAPENTIN 300 MG CAPSULE PO SCH ×3 (08:16→21:56)
[2022-02-18 08:32] LABS: Alanine Aminotransferase < 9 U/L (13-56); Albumin 2.4 G/DL (3.4-5.0); Alkaline Phosphatase 83 U/L (45-117); Aspartate Amino Transferase 8 U/L (0-37); Bilirubin,Indirect 0.9 MG/DL (0.0-1.0); Total Protein 6.5 G/DL (6.4-8.2)
[2022-02-18] MEDS ORDERED: FILGRASTIM-SNDZ 300 MCG/0.5 ML SYRINGE SUBCUT ONE (09:00)
[2022-02-18] MEDS: METOCLOPRAMIDE 10 MG/10 ML UDCUP PO SCH ×4 (10:10→21:55)
[2022-02-18] MEDS: MAGNESIUM CHLORIDE 64 MG TABLET PO SCH ×2 (10:36→21:55)
[2022-02-18] MEDS: OMEPRAZOLE ODT 20 MG TABLET PO SCH ×2 (10:36→21:55)
[2022-02-18] MEDS: POTASSIUM CHLORIDE 20 MEQ TABLET PO SCH ×2 (10:36→21:56)
[2022-02-18] MEDS: DICLOFENAC 1% GEL 100 GM TUBE TOP SCH ×3 (10:36→21:56)
[2022-02-18] MEDS ORDERED: TUBERCULIN SKIN TEST 0.1 ML SYRINGE INTRADERM ONE (10:40)
[2022-02-18] MEDS ORDERED: MAGNESIUM SULF INJ 3 GM in SODIUM CHLORIDE 0.9% 100 ML IV ONE (20:00)
[2022-02-18] MEDS: MIRTAZAPINE 15 MG TABLET PO SCH (21:55)
[2022-02-19] MEDS: SODIUM CHLORIDE 0.45% 1,000 ML IV SCH ×2 (00:21→07:13)
[2022-02-19 05:00] LABS: Basophils # 0.1 10*3/uL (0.0-0.2); Basophils % 1.7 % (0.0-0.8); Eosinophils % 0.7 % (0.00-10.9); Hematocrit 30.3 VOL% (35.7-47.0); Hemoglobin 10.3 GM/DL (12.0-16.0); Immature Granulocytes % 5.5 %; Immature Granulocytes Absolute 0.16 #; Lymphocytes # 0.6 10*3/uL (1.4-4.0); Lymphocytes % 19.3 % (21.3-54.2); Mean Corpuscular Volume 84.4 FL (87-102); Mean Platelet Volume 9.8 FL (9.6-12.0); Monocytes # 0.2 10*3/uL (0.11-0.8); Monocytes % 5.9 % (1.7-12.7); Neutrophils % 66.9 % (38.7-73.9); Red Blood Count 3.59 MC/CUMM (3.8-5.5); Red Cell Distribution Width 15.4 % (9.3-17.3); White Blood Count 2.9 T/CUMM (4-12)
[2022-02-19 05:03] LABS: Platelet Count 24 T/CUMM (130-400)
[2022-02-19 05:18] LABS: Calcium 9.2 MG/DL (8.5-10.1); Osmolality,Calculated 260.5 MOS/KG (273-304); Potassium 3.9 MMOL/L (3.5-5.1)
[2022-02-19 05:37] LABS: Band Neutrophils 2 % (0-10); Lymphocytes 18 % (20-55); Metamyelocytes 1 %; Microcytosis Slight; Nucleated Red Blood Cells 1 /100 WBC (0-5); Ovalocytes Slight; Total Cells Counted 100
[2022-02-19 05:38] LABS: Platelet Estimate Decreased
[2022-02-19] MEDS ORDERED: CHOLECALCIFEROL 1,000 UNIT TABLET PO SCH (09:00)
[2022-02-19] MEDS: METOCLOPRAMIDE 10 MG/10 ML UDCUP PO SCH (10:07)
[2022-02-19] MEDS: GABAPENTIN 300 MG CAPSULE PO SCH (10:07)
[2022-02-19] MEDS: POTASSIUM CHLORIDE 20 MEQ TABLET PO SCH (10:07)
[2022-02-19] MEDS: MAGNESIUM CHLORIDE 64 MG TABLET PO SCH (10:08)
[2022-02-19] MEDS: OMEPRAZOLE ODT 20 MG TABLET PO SCH (10:08)
[2022-02-19] MEDS: DICLOFENAC 1% GEL 100 GM TUBE TOP SCH ×3 (10:08→21:08)
[2022-02-19] MEDS: LORazepam 2 MG/1 ML VIAL IV PRN ×2 (11:17→18:31)
[2022-02-19] MEDS: MORPHINE 2 MG/1 ML SYRINGE IV PRN (14:11)
[2022-02-19] MEDS ORDERED: methylPREDNISolone SOD SUC INJ 1,000 MG in SODIUM CHLORIDE 0.9% 100 ML IV ONE (20:00)
[2022-02-19] MEDS ORDERED: IMMUNE GLOBULIN 10% 20 GM in PREMIX 1 EACH IV ONE (21:00)
[2022-02-20 07:41] LABS: Basophils % 0.9 % (0.0-0.8); Hematocrit 28.9 VOL% (35.7-47.0); Hemoglobin 9.9 GM/DL (12.0-16.0); Immature Granulocytes % 11.1 %; Immature Granulocytes Absolute 0.25 #; Lymphocytes # 0.4 10*3/uL (1.4-4.0); Lymphocytes % 18.7 % (21.3-54.2); Mean Corpuscular HGB Conc 34.3 GM/DL (32-36); Mean Platelet Volume 9.1 FL (9.6-12.0); Monocytes # 0.1 10*3/uL (0.11-0.8); Monocytes % 4.4 % (1.7-12.7); Neutrophils % 64.9 % (38.7-73.9); Red Cell Distribution Width 15.4 % (9.3-17.3); White Blood Count 2.3 T/CUMM (4-12)
[2022-02-20 07:56] LABS: Calcium 9.4 MG/DL (8.5-10.1); Osmolality,Calculated 259.8 MOS/KG (273-304); Potassium 4.1 MMOL/L (3.5-5.1)
[2022-02-20 08:03] LABS: Platelet Count 18 T/CUMM (130-400)
[2022-02-20 08:09] LABS: Band Neutrophils 5 % (0-10); Hypochromia Slight; Lymphocytes 15 % (20-55); Myelocytes 1 %; Nucleated Red Blood Cells 1 /100 WBC (0-5); Total Cells Counted 100
[2022-02-20 08:10] LABS: Microcytosis Slight; Ovalocytes Slight; Platelet Estimate Decreased
[2022-02-20] MEDS: MORPHINE 2 MG/1 ML SYRINGE IV PRN (08:37)
[2022-02-20] MEDS: DICLOFENAC 1% GEL 100 GM TUBE TOP SCH (08:38)
[2022-02-20] MEDS: LORazepam 2 MG/1 ML VIAL IV PRN (10:45)
[2022-02-20 11:46] VITALS: BP 150/111
== END 2022-02-20 11:56 | disposition hospice, inpatient (51) | DRG 374 ==
LOC: N.ED 08:01 → N.EDINP 10:37 → SUATTDRO 10:37 → N.EDINP 15:03 → N.TELEN 15:39
PROVIDERS: ADMIT Internal Medicine; ATTEND Hospitalist

== ENCOUNTER 2022-02-20 10:45 | Inpatient (IN) ==
[2022-02-20] MEDS ORDERED: MORPHINE 2 MG/1 ML SYRINGE IM PRN (12:07)
[2022-02-20] MEDS ORDERED: BISACODYL 10 MG SUPP RECTAL PRN (12:07)
[2022-02-20] MEDS ORDERED: ONDANSETRON 4 MG/2 ML VIAL IV PRN (12:09)
[2022-02-20] MEDS ORDERED: SCOPOLAMINE 1.5 MG PATCH TRANSDERM PRN (12:12)
[2022-02-20] MEDS ORDERED: LORazepam 2 MG/1 ML VIAL IV SCH (12:30)
[2022-02-20] MEDS ORDERED: fentaNYL 12 MCG/HR PATCH TRANSDERM SCH (12:30)
[2022-02-20] MEDS: ACETAMINOPHEN 650 MG SUPP RECTAL PRN (13:30)
[2022-02-20] MEDS: LORazepam 2 MG/1 ML VIAL IV PRN (16:56)
[2022-02-20] MEDS: MORPHINE 2 MG/1 ML SYRINGE IV PRN ×2 (17:55→22:28)
[2022-02-21] MEDS: ACETAMINOPHEN 650 MG SUPP RECTAL PRN ×4 (03:56→21:48)
[2022-02-21] MEDS: LORazepam 2 MG/1 ML VIAL IV PRN ×2 (03:56→21:47)
[2022-02-21] MEDS: MORPHINE 2 MG/1 ML SYRINGE IV PRN (14:41)
[2022-02-21 20:35] VITALS: BP 82/57
== END 2022-02-21 22:50 | disposition expired | DRG 951 ==
LOC: SUATTDRO 10:45 → N.SDSINP 10:45 → N.TELEN 11:56
PROVIDERS: ADMIT Internal Medicine; ATTEND Hospitalist